=== PATIENT | female | born 1990 | race American Indian/Alaskan Native ===

== ENCOUNTER 2016-03-26 07:49 | Emergency (ER) | payer SELFPAY ==
[2016-03-26 08:28] VITALS: BP 105/72
[2016-03-26] MEDS ORDERED: ROBITUSSIN PO ONE (09:08)
--- NOTE | 2016-03-26 09:14 | Emergency Department Report ---
- General Chief Complaint: Upper Respiratory Infection Stated Complaint: FLU SYMPTOMS/STOMACH PAINS Time Seen by Provider: 03/26/16 08:54 Source: patient Mode of arrival: Ambulatory Limitations: No Limitations - History of Present Illness Initial Comments: Patient is a 25-year-old female who presents to ED complaining of cough, generalized body aches 3 days. Patient states generalized body aches started 3 days ago followed by dry nonproductive cough, generalized denies headache started yesterday. Patient states she has not taking any [id number] medications for relief. Patient does not recall fever. Patient states she has had some chills, clear rhinorrhea,. Patient denies nausea/vomiting/abdominal pain/diarrhea/constipation/chest pain/ shortness of breath/recent travel/throat pain/dysuria - Related Data Previous Rx's Medication Instructions Recorded Last Taken Type Benzonatate [Tessalon Perles] 100 mg PO Q8HR #30 capsule 03/26/16 Unknown Rx Loratadine [Claritin] 10 mg PO DAILY #20 tablet 03/26/16 Unknown Rx guaiFENesin DM [Robitussin Dm] 10 ml PO Q6HR #120 ml 03/26/16 Unknown Rx Allergies Allergy/AdvReac Type Severity Reaction Status Date / Time No Known Allergies Allergy Verified 11/18/14 14:06 ED Review of Systems ROS: Stated complaint: FLU SYMPTOMS/STOMACH PAINS Other details as noted in HPI Constitutional: chills. denies: fever Eyes: denies: eye pain, eye discharge, vision change ENT: denies: ear pain, throat pain, dental pain, hearing loss Respiratory: see HPI, cough. denies: shortness of breath, SOB with exertion, SOB at rest, wheezing Cardiovascular: denies: chest pain, palpitations Endocrine: no symptoms reported. denies: flushing, increased hunger, increased thirst, increased urine Gastrointestinal: denies: abdominal pain, nausea, vomiting, diarrhea, constipation, hematemesis Genitourinary: denies: urgency, dysuria, discharge Musculoskeletal: denies: back pain, joint swelling, arthralgia Skin: denies: rash, lesions Neurological: denies: headache, weakness, paresthesias, confusion, abnormal gait , vertigo Psychiatric: denies: anxiety, depression Hematological/Lymphatic: denies: easy bleeding, easy bruising ED Past Medical Hx - Past Medical History Previous Medical History?: No - Surgical History Past Surgical History?: No Additional Surgical History: - Social History Smoking Status: Never Smoker Substance Use Type: None - Medications Home Medications: Home Medications Medication Instructions Recorded Confirmed Last Taken Type Benzonatate [Tessalon Perles] 100 mg PO Q8HR #30 capsule 03/26/16 Unknown Rx Loratadine [Claritin] 10 mg PO DAILY #20 tablet 03/26/16 Unknown Rx guaiFENesin DM [Robitussin Dm] 10 ml PO Q6HR #120 ml 03/26/16 Unknown Rx ED Physical Exam - General Limitations: No Limitations General appearance: alert, in no apparent distress - Head Head exam: Present: atraumatic, normocephalic - Eye Eye exam: Present: normal appearance, PERRL, EOMI Pupils: Present: normal accommodation - ENT ENT exam: Present: mucous membranes moist - Expanded ENT Exam Expanded Ear exam: Present: normal external inspection. Absent: auricular hematoma, auricular trauma Mouth exam: Present: normal external inspection, tongue normal. Absent: drooling, trismus, muffled voice Teeth exam: Present: normal inspection Throat exam: Positive: normal inspection. Negative: tonsillar erythema, tonsillomegaly, tonsillar exudate, R peritonsillar mass, L peritonsillar mass - Neck Neck exam: Present: normal inspection, full ROM. Absent: tenderness - Respiratory Respiratory exam: Present: normal lung sounds bilaterally. Absent: respiratory distress, wheezes, rales, rhonchi, stridor - Cardiovascular Cardiovascular Exam: Present: regular rate, normal rhythm. Absent: systolic murmur, diastolic murmur, rubs, gallop - GI/Abdominal GI/Abdominal exam: Present: soft, normal bowel sounds. Absent: distended, tenderness, guarding, rebound - Extremities Exam Extremities exam: Present: normal inspection, full ROM, normal capillary refill. Absent: tenderness - Back Exam Back exam: Present: normal inspection, full ROM. Absent: tenderness, CVA tenderness (R), CVA tenderness (L) - Neurological Exam Neurological exam: Present: alert, oriented X3, normal gait, reflexes normal. Absent: motor sensory deficit - Psychiatric Psychiatric exam: Present: normal affect, normal mood - Skin Skin exam: Present: warm, dry, intact, normal color. Absent: rash ED Course Vital Signs 03/26/16 08:25 Temperature 99 F Pulse Rate 92 H Blood Pressure 105/72 O2 Sat by Pulse 96 Oximetry ED Medical Decision Making - Medical Decision Making 25-year-old presents with upper respiratory infection, ED course: Influenza nasal swab collected. Influenza A and B negative Robitussin syrup to patient. Discussed results with patient. Discussed the follow up with primary care physician as referred. Discussed [id number] medications for symptomatic relief. Discussed Tylenol as needed Discussed to take prescriptions as prescribed. Patient states she verbally understands and will comply. Critical care attestation.: If time is entered above; I have spent that time in minutes in the direct care of this critically ill patient, excluding procedure time. ED Disposition Clinical Impression: URI (upper respiratory infection) Disposition: DISCHARGED TO HOME OR SELFCARE Is pt being admited?: No Does the pt Need Aspirin: No Condition: Stable Instructions: Upper Respiratory Infection (ED), Acute Bronchitis (ED) Prescriptions: Loratadine [Claritin] 10 mg PO DAILY #20 tablet guaiFENesin DM [Robitussin Dm] 10 ml PO Q6HR #120 ml Benzonatate [Tessalon Perles] 100 mg PO Q8HR #30 capsule Referrals: PRIMARY CARE, [Primary Care Provider] - 3-5 Days [facility] [place][Note 3] [Outside] - 3-5 Days [facility] [Outside] - 3-5 Days [facility] [Outside] - 3-5 Days [facility] [Outside] - 3-5 Days [facility] [Outside] - 3-5 Days Forms: Accompanied Note, Work/School Release Form(ED) Time of Disposition: 10:08
== END 2016-03-26 10:33 | disposition home or self-care (01) ==
LOC: ED 07:49
DX: J06.9 Acute upper respiratory infection, unspecified (principal)
CPT/HCPCS: 87400; 99282

== ENCOUNTER 2016-07-09 10:18 | Emergency (ER) | payer SELFPAY ==
[2016-07-09 11:08] LABS: Basophils % (Auto) 0.8 % (0.0-1.8); Eosinophils % (Auto) 0.5 % (0.0-4.3); Hematocrit 35.3 % (30.3-42.9); Hemoglobin 11.7 gm/dl (10.1-14.3); Mean Corpuscular HGB Conc 33 % (30-34); Mean Corpuscular Hemoglobin 30 pg (28-32); Mean Corpuscular Volume 89 fl (79-97); Platelet Count 336 K/mm3 (140-440); Red Blood Count 3.95 M/mm3 (3.65-5.03); Red Cell Distribution Width 12.6 % (13.2-15.2); White Blood Count 8.8 K/mm3 (4.5-11.0)
[2016-07-09 11:22] LABS: Alanine Aminotransferase 11 units/L (7-56); Albumin 3.9 g/dL (3.9-5); Albumin/Globulin Ratio 1.3 %; Alkaline Phosphatase 43 units/L (35-129); Anion Gap 15 mmol/L; BUN/Creatinine Ratio 11.66; Bilirubin,Total 0.4 mg/dL (0.1-1.2); Blood Urea Nitrogen 7 mg/dL (7-17); Calcium 9.1 mg/dL (8.4-10.2); Carbon Dioxide 22 mmol/L (22-30); Chloride 102.4 mmol/L (98-107); Glucose 55 mg/dL (65-100); Lipase 34 units/L (13-60); Potassium 3.4 mmol/L (3.6-5.0); Sodium 136 mmol/L (137-145)
[2016-07-09 12:20] LABS: Bacteria,Urine 2+ /HPF (Negative); Bilirubin,Urine NEG (Negative); Blood,Urine SM (Negative); Ketones,Urine NEG (Negative); Leukocyte Esterase,Urine TR (Negative); Mucus,Urine FEW /HPF; Nitrite,Urine NEG (Negative); Protein,Urine <15 mg/dL mg/dL (Negative); Urobilinogen,Urine < 2.0 mg/dL (<2.0)
--- NOTE | 2016-07-09 20:27 | Ultrasound Report ---
FINAL REPORT EXAM: US OB \T\lt; = 14 WEEKS FETUS HISTORY: vaginal bleeding TECHNIQUE: Transabdominal and transvaginal sonography of the pelvis. PRIORS: None. FINDINGS: There is a single, live intrauterine . Ultrasound estimated gestational age is 6 weeks 6 days. Ultrasound estimated date of confinement is 26 February 2017. heart motion is detected. The right ovary measures 3.2 x 2.9 x 2.6 cm and contains a rounded, hypoechoic focus measuring approximately 2 cm, which may represent involuting follicle or cyst. The left ovary measures 2.7 x 1.4 x 1.9 cm and is grossly unremarkable. Remainder of uterus and adnexa grossly unremarkable. IMPRESSION: 1. Single, live intrauterine . 2. Findings which may represent functional cystic change in the right ovary. Clinical correlation and followup pelvic ultrasound in 6-10 weeks advised to document resolution.
[2016-07-09 21:36] VITALS: BP 98/65
== END 2016-07-09 21:38 ==
LOC: ED 10:18
DX: R10.9 Unspecified abdominal pain (principal); Z53.21 Procedure and treatment not carried out due to patient leaving prior to being seen by health care provider; V49.9XXA Car occupant (driver) (passenger) injured in unspecified traffic accident, initial encounter; W22.11XA Striking against or struck by driver side automobile airbag, initial encounter; Y93.89 Activity, other specified; Y99.8 Other external cause status; Y92.89 Other specified places as the place of occurrence of the external cause
CPT/HCPCS: 36415; 76801; 76817; 80053; 81001; 81025; 83690; 84702; 85025

== ENCOUNTER 2016-10-05 21:28 | Emergency (ER) | payer MEDICAID ==
--- NOTE | 2016-10-06 01:06 | Emergency Department Report ---
ED ENT HPI - General Chief complaint: Earache Stated complaint: R EAR PAIN/POSS EAR INFECTION Time Seen by Provider: 10/05/16 23:49 Source: patient Mode of arrival: Ambulatory Limitations: No Limitations - History of Present Illness Initial comments: 26-year-old female past medical history presents with complaint of 2-3 days of right earache. Patient denies fevers or chills denies any toothache, states she has had some minor purulent drainage from right ear. Denies headache states pain is localized to right ear. Patient is awake alert and oriented 3 not in acute distress. States she has been cleaning her ear with Q-tips and cotton swabs. MD complaint: ear pain Onset/Timin -: days(s) Location: R ear Severity: moderate Severity scale (0 -10): 5 Quality: aching Consistency: constant Improves with: none Worsens with: none - Related Data Previous Rx's Medication Instructions Recorded Last Taken Type Benzonatate [Tessalon Perles] 100 mg PO Q8HR #30 capsule 03/26/16 Unknown Rx Loratadine [Claritin] 10 mg PO DAILY #20 tablet 03/26/16 Unknown Rx guaiFENesin DM [Robitussin Dm] 10 ml PO Q6HR #120 ml 03/26/16 Unknown Rx Amoxicillin/K Clav Tab [Augmentin 1 tab PO Q12HR #14 tab 10/06/16 Unknown Rx 875 mg] Ibuprofen [Motrin] 600 mg PO Q8H PRN #20 tablet 10/06/16 Unknown Rx Neomy/Polymyx B/Hc (Otic) Soln 4 drops OTIC TID #1 bottle 10/06/16 Unknown Rx [Cortisporin (Otic) Soln] Allergies Allergy/AdvReac Type Severity Reaction Status Date / Time No Known Allergies Allergy Verified 11/18/14 14:06 ED Dental HPI - General Chief complaint: Earache Stated complaint: R EAR PAIN/POSS EAR INFECTION Time Seen by Provider: 10/05/16 23:49 Source: patient Mode of arrival: Ambulatory Limitations: No Limitations - Related Data Previous Rx's Medication Instructions Recorded Last Taken Type Benzonatate [Tessalon Perles] 100 mg PO Q8HR #30 capsule 03/26/16 Unknown Rx Loratadine [Claritin] 10 mg PO DAILY #20 tablet 03/26/16 Unknown Rx guaiFENesin DM [Robitussin Dm] 10 ml PO Q6HR #120 ml 03/26/16 Unknown Rx Amoxicillin/K Clav Tab [Augmentin 1 tab PO Q12HR #14 tab 10/06/16 Unknown Rx 875 mg] Ibuprofen [Motrin] 600 mg PO Q8H PRN #20 tablet 10/06/16 Unknown Rx Neomy/Polymyx B/Hc (Otic) Soln 4 drops OTIC TID #1 bottle 10/06/16 Unknown Rx [Cortisporin (Otic) Soln] Allergies Allergy/AdvReac Type Severity Reaction Status Date / Time No Known Allergies Allergy Verified 11/18/14 14:06 ED Review of Systems ROS: Stated complaint: R EAR PAIN/POSS EAR INFECTION Other details as noted in HPI Constitutional: denies: chills, fever Eyes: denies: eye pain, eye discharge, vision change ENT: as per HPI, ear pain. denies: throat pain Respiratory: denies: cough, shortness of breath, wheezing Cardiovascular: denies: chest pain, palpitations Endocrine: no symptoms reported Gastrointestinal: denies: abdominal pain, nausea, diarrhea Genitourinary: denies: urgency, dysuria, discharge Musculoskeletal: denies: back pain, joint swelling, arthralgia Skin: denies: rash, lesions Neurological: denies: headache, weakness, paresthesias Psychiatric: denies: anxiety, depression Hematological/Lymphatic: denies: easy bleeding, easy bruising ED Past Medical Hx - Past Medical History Previous Medical History?: No - Surgical History Past Surgical History?: Yes Additional Surgical History: x2 - Social History Smoking Status: Never Smoker Substance Use Type: None - Medications Home Medications: Home Medications Medication Instructions Recorded Confirmed Last Taken Type Benzonatate [Tessalon Perles] 100 mg PO Q8HR #30 capsule 03/26/16 07/09/16 Unknown Rx Loratadine [Claritin] 10 mg PO DAILY #20 tablet 03/26/16 07/09/16 Unknown Rx guaiFENesin DM [Robitussin Dm] 10 ml PO Q6HR #120 ml 03/26/16 07/09/16 Unknown Rx Amoxicillin/K Clav Tab [Augmentin 1 tab PO Q12HR #14 tab 10/06/16 Unknown Rx 875 mg] Ibuprofen [Motrin] 600 mg PO Q8H PRN #20 tablet 10/06/16 Unknown Rx Neomy/Polymyx B/Hc (Otic) Soln 4 drops OTIC TID #1 bottle 10/06/16 Unknown Rx [Cortisporin (Otic) Soln] ED Physical Exam - General Limitations: No Limitations General appearance: alert, in no apparent distress - Head Head exam: Present: atraumatic, normocephalic - Eye Eye exam: Present: normal appearance, PERRL, EOMI - ENT ENT exam: Present: mucous membranes moist - Expanded ENT Exam Expanded TM/Canal exam: Erythema: Right TM, Bulging: Right TM, Effusion: Right TM ( visible effusion small effusion behind tympanic membrane, tympanic membrane is intact. There is no mastoid tenderness on exam, injection of tympanic membrane and external canal) Throat exam: Positive: normal inspection - Neck Neck exam: Present: normal inspection, full ROM, lymphadenopathy (mild preauricular lymphadenopathy right side face) - Respiratory Respiratory exam: Present: normal lung sounds bilaterally. Absent: respiratory distress - Cardiovascular Cardiovascular Exam: Present: regular rate, normal rhythm. Absent: systolic murmur, diastolic murmur, rubs, gallop - GI/Abdominal GI/Abdominal exam: Present: soft, normal bowel sounds - Extremities Exam Extremities exam: Present: normal inspection - Back Exam Back exam: Present: normal inspection - Neurological Exam Neurological exam: Present: alert, oriented X3 - Psychiatric Psychiatric exam: Present: normal affect, normal mood - Skin Skin exam: Present: warm, dry, intact, normal color. Absent: rash ED Course Vital Signs 10/05/16 21:58 Temperature 98.7 F Pulse Rate 69 Blood Pressure 98/48 O2 Sat by Pulse 100 Oximetry ED Medical Decision Making - Medical Decision Making A/P: Otitis externa/otitis media 1-there is both injection of the external auditory canal and the tympanic membrane itself will treat empirically with oral antibiotics and topical antibiotics 2-Motrin when necessary 3-there is no evidence of mastoiditis on exam, tympanic membrane is not ruptured , overall hearing is intact 4-follow up with primary care and ENT Critical care attestation.: If time is entered above; I have spent that time in minutes in the direct care of this critically ill patient, excluding procedure time. ED Disposition Clinical Impression: Otitis media Qualifiers: Otitis media type: suppurative Chronicity: acute Laterality: right Recurrence: not specified as recurrent Spontaneous tympanic membrane rupture: without spontaneous rupture Qualified Code(s): H66.001 - Acute suppurative otitis media without spontaneous rupture of ear drum, right ear Disposition: TO HOME OR SELFCARE Is pt being admited?: No Does the pt Need Aspirin: No Condition: Stable Instructions: Otitis Media (ED) Prescriptions: Amoxicillin/K Clav Tab [Augmentin 875 mg] 1 tab PO Q12HR #14 tab Ibuprofen [Motrin] 600 mg PO Q8H PRN #20 tablet PRN Reason: Pain Neomy/Polymyx B/Hc (Otic) Soln [Cortisporin (Otic) Soln] 4 drops OTIC TID #1 bottle Referrals: JANUSZ ORTIZ MD [Staff Physician] - 3-5 Days ROHIT MALLORY MD [Staff Physician] - 3-5 Days Forms: Work/School Release Form(ED) Time of Disposition: 01:20
[2016-10-06] MEDS ORDERED: MOTRIN PO ONE (01:21)
[2016-10-06 01:31] VITALS: BP 97/59
== END 2016-10-06 01:31 | disposition home or self-care (01) ==
LOC: ED 21:28
DX: H66.91 Otitis media, unspecified, right ear (principal)
CPT/HCPCS: 99282

== ENCOUNTER 2016-10-28 09:05 | Outpatient (CLI) | payer MEDICAID ==
[2016-10-28 09:40] VITALS: BP 87/52
[2016-10-28] MEDS ORDERED: LACTATED RINGERS 500 ML IV ONE (11:27)
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
== END 2016-10-28 11:45 | disposition home or self-care (01) ==
LOC: TRG 09:05
PROVIDERS: ATTEND Obstetrics & Gynecology
DX: O46.92 Antepartum hemorrhage, unspecified, second trimester (principal); O47.02 False labor before 37 completed weeks of gestation, second trimester; O26.892 Other specified pregnancy related conditions, second trimester; V89.2XXD Person injured in unspecified motor-vehicle accident, traffic, subsequent encounter; Z3A.22 22 weeks gestation of pregnancy
CPT/HCPCS: 59025; 76815

== ENCOUNTER 2016-10-28 16:50 | Outpatient (CLI) | payer MEDICAID ==
[2016-10-28] MEDS ORDERED: LACTATED RINGERS 500 ML IV ONE (16:53)
[2016-10-28 19:49] VITALS: BP 95/53
== END 2016-10-28 20:01 | disposition home or self-care (01) ==
LOC: TRG 16:50
PROVIDERS: ATTEND Obstetrics & Gynecology
DX: O47.02 False labor before 37 completed weeks of gestation, second trimester (principal); Z3A.22 22 weeks gestation of pregnancy
CPT/HCPCS: 59025

== ENCOUNTER 2016-12-31 07:54 | Outpatient (CLI) | payer MEDICAID ==
[2016-12-31 08:14] LABS: Urine Drugs of Abuse Note Disclamer
[2016-12-31 08:27] LABS: Bilirubin,Urine NEG (Negative); Blood,Urine NEG (Negative); Ketones,Urine NEG (Negative); Leukocyte Esterase,Urine NEG (Negative); Mucus,Urine FEW /HPF; Nitrite,Urine NEG (Negative); Protein,Urine <15 mg/dL mg/dL (Negative); RBC,Urine < 1.0 /HPF (0.0-6.0); Urobilinogen,Urine < 2.0 mg/dL (<2.0); WBC,Urine < 1.0 /HPF (0.0-6.0)
[2016-12-31 08:56] LABS: Hemoglobin 10.8 gm/dl (10.1-14.3); Mean Corpuscular HGB Conc 34 % (30-34); Mean Corpuscular Hemoglobin 30 pg (28-32); Mean Corpuscular Volume 88 fl (79-97); Platelet Count 340 K/mm3 (140-440); Red Blood Count 3.66 M/mm3 (3.65-5.03); Red Cell Distribution Width 12.7 % (13.2-15.2); White Blood Count 9.4 K/mm3 (4.5-11.0)
[2016-12-31 09:13] VITALS: BP 84/54
[2016-12-31 09:37] LABS: Blastocytes % (Manual) 0 %
[2016-12-31 09:38] LABS: Anisocytosis Few; Diff Status Complete; Poikilocytosis Few
[2016-12-31] MEDS ORDERED: LACTATED RINGERS 1,000 ML IV ONE (10:00)
== END 2016-12-31 09:40 | disposition home or self-care (01) ==
LOC: TRG 07:54
PROVIDERS: ATTEND Obstetrics & Gynecology
DX: O47.03 False labor before 37 completed weeks of gestation, third trimester (principal); Z3A.31 31 weeks gestation of pregnancy
CPT/HCPCS: 36415; 59025; 80307; 81001; 85007; 85025; 96360; J7120

== ENCOUNTER 2017-02-24 09:30 | Inpatient (IN) | payer MEDICAID ==
[2017-02-24] MEDS ORDERED: LACTATED RINGERS 1,000 ML ONE ×2 (10:07→10:49)
[2017-02-24] MEDS: LACTATED RINGERS 1,000 ML IV SCH ×2 (10:45→15:46)
--- NOTE | 2017-02-24 10:54 | Anesthesia Consultation ---
Anesthesia Consult and Med Hx Date of service: 02/24/17 - Airway Anesthetic Teeth Evaluation: Good ROM Head & Neck: Adequate Mental/Hyoid Distance: Adequate Mallampati Class: Class II Intubation Access Assessment: Probably Good - Pre-Operative Health Status ASA Pre-Surgery Classification: ASA2 Proposed Anesthetic Plan: Epidural, Spinal - Pulmonary Hx Asthma: No - Cardiovascular System Hx Hypertension: No - Central Nervous System Hx Seizures: No Hx Psychiatric Problems: No - Endocrine Hx Renal Disease: No Hx Hypothyroidism: No Hx Hyperthyroidism: No - Hematic Hx Anemia: No Hx Sickle Cell Disease: No - Other Systems Hx Alcohol Use: No
--- NOTE | 2017-02-24 10:58 | Anesthesia Day of Surgery ---
Anesthesia Day of Surgery - Day of Surgery Patient Examined: Yes Patient H&P Reviewed: Yes Patient is NPO: Yes
[2017-02-24] MEDS ORDERED: REGLAN IV NR (11:00)
[2017-02-24] MEDS ORDERED: PITOCin/NS 20 UNIT/1000ML DRIP 20 UNITS/1,000 ML BAG IV SCH ×2 (11:00→13:00)
[2017-02-24] MEDS ORDERED: SODIUM CHLORIDE FLUSH SYRINGE 10 ML IV NR (11:00)
[2017-02-24] MEDS ORDERED: BICITRA PO NR (11:00)
[2017-02-24] MEDS ORDERED: ANCEF/STERILE WATER 2 GM/20 ML 2 GM/20 ML SYRINGE IV NR (11:00)
[2017-02-24] MEDS ORDERED: PEPCID IV NR (11:00)
[2017-02-24] MEDS ORDERED: BENADRYL IV PRN (11:00)
[2017-02-24 11:03] LABS: Hematocrit 33.7 % (30.3-42.9); Hemoglobin 11.1 gm/dl (10.1-14.3); Mean Corpuscular HGB Conc 33 % (30-34); Mean Corpuscular Hemoglobin 28 pg (28-32); Mean Corpuscular Volume 84 fl (79-97); Platelet Count 362 K/mm3 (140-440); Red Blood Count 4.02 M/mm3 (3.65-5.03); White Blood Count 11.5 K/mm3 (4.5-11.0)
--- NOTE | 2017-02-24 11:03 | History and Physical Report ---
History of Present Illness Date of examination: 02/24/17 Date of admission: 02/24/17 09:35 Chief complaint: c/s History of present illness: Pt here for repeat c/s. EDC Calculations LMP: 03/02/2017 EDC Confirmation: 03/02/2017 Gestational Age: 14 1/7 weeks Past History : 3 Term Births: 2 Premature Births: 0 Living Children: 2 Para: 2 Mult. Births: 0 Prev : 2 Prev. attempt? 0 Aborta: 0 Elect. Ab: 0 Spont. Ab: 0 Ectopics: 0 # 1 Delivery date: 2006 Weeks Gestation: term labor: no Delivery type: Delivery location: [facility] Sex: Male weight: 5#2 Comments: failure to diliate # 2 Delivery date: 2009 Weeks Gestation: term labor: no Delivery type: Delivery location: [facility] Sex: Female weight: 7#1 Comments: scheduled repeat Past Medical History: Negative Past Medical History Past Surgical History: x2 Past Medical History Surgery (Non-solution director): x2 Abnormal PAP: negative PATY Exposure: negative Infertility: negative Uterine Anomaly: negative Uterine Surgery (not C/S): negative Other Gynecologic Problems: negative Family Hx: MGM - HTN MGF - Lung CA No knonw family hx breast cancer Social Hx: single denies ETOH/Drugs or smoking Infection History Hx of STD: chlamydia HIV Risk Eval: no Hepatitis B Risk Eval: low risk Personal hx. of genital herpes: no Partner hx. of genital herpes: no Rash, Viral, or Febrile illness since last LMP? no Varicella/Chicken Pox Status: Previous Disease Infection History Comments: +CT age 16 Genetic History Congenital Heart Defect: Mom: no Dad: no Yara Disease: Mom: no Dad: no Thalassemia Mom: no Dad: no Neural Tube Defect Mom: no Dad: no Down's Syndrome Mom: no Dad: no Jonathon-Sachs Mom: no Dad: no Sickle Cell Disease/Trait Mom: no Dad: no Hemophilia Mom: no Dad: no Muscular Dystrophy Mom: no Dad: no Cystic Fibrosis Mom: no Dad: no Karen Chorea Mom: no Dad: no Mental Retardation Mom: no Dad: no Fragile X Mom: no Dad: no Other Genetic/Chromosomal Disorder Mom: no Dad: no Child w/other defect Mom: no Dad: no Enviromental Exposures Xray Exposure: no Medication, drug, or alcohol use since LMP: no Chemical/Other Exposure: no Exposure to Cat Liter: no Hx of Parvovirus (Fifth Disease): no Occupational Exposure to Children: none Active Medications (reviewed today): None Current Allergies (reviewed today): No known allergies Past History Past Medical History: no pertinent history Past Surgical History: section Family/Genetic History: none Social history: no significant social history - Obstetrical History Expected Date of Delivery: 03/02/17 Actual Gestation: 39 Week(s) 1 Day(s) : 3 Para: 2 Number of Living Children: 2 Medications and Allergies Allergies Allergy/AdvReac Type Severity Reaction Status Date / Time No Known Allergies Allergy Verified 11/18/14 14:06 Home Medications Medication Instructions Recorded Confirmed Last Taken Type Benzonatate [Tessalon Perles] 100 mg PO Q8HR #30 capsule 03/26/16 07/09/16 Unknown Rx Loratadine [Claritin] 10 mg PO DAILY #20 tablet 03/26/16 07/09/16 Unknown Rx guaiFENesin DM [Robitussin Dm] 10 ml PO Q6HR #120 ml 03/26/16 07/09/16 Unknown Rx Amoxicillin/K Clav Tab [Augmentin 1 tab PO Q12HR #14 tab 10/06/16 Unknown Rx 875 mg] Ibuprofen [Motrin] 600 mg PO Q8H PRN #20 tablet 10/06/16 Unknown Rx Neomy/Polymyx B/Hc (Otic) Soln 4 drops OTIC TID #1 bottle 10/06/16 Unknown Rx [Cortisporin (Otic) Soln] Active Meds: Active Medications Citric Acid/Sodium Citrate (Bicitra) 30 ml PO ONCE ONE Stop: 02/24/17 10:47 Famotidine (Pepcid) 20 mg IV ONCE ONE Stop: 02/24/17 10:47 Cefazolin Sodium (Ancef/Sterile Water 2 Gm/20 Ml) 2 gm in 20 mls @ 80 mls/hr IV PREOP NR PRN Reason: Protocol Lactated Ringer's (Lactated Ringers) 1,000 mls @ 2,250 mls/hr IV PREOP ASYA Stop: 02/25/17 11:27 Oxytocin/Sodium Chloride (Pitocin/Ns 20 Unit/1000ml Drip) 20 units in 1,000 mls @ 0 mls/hr IV TITR ASYA PRN Reason: As Directed Metoclopramide HCl (Reglan) 10 mg IV ONCE ONE Stop: 02/24/17 10:47 Review of Systems All systems: negative - Vital Signs Vital signs: Vital Signs Temp Resp 98.0 F 18 02/24/17 10:12 02/24/17 10:12 Temp Pulse Resp BP Pulse Ox 98.0 F 65 18 108/61 02/24/17 10:12 02/24/17 10:41 02/24/17 10:12 02/24/17 10:41 - Physical Exam Cardiovascular: Normal S1, Normal S2 Lungs: Positive: Clear to auscultation Abdomen: Positive: normal appearance, soft. Negative: distention, tenderness, guarding Genitourinary (Female): Positive: normal external genitalia, normal perenium Results Result Diagrams: 02/24/17 10:00 All other labs normal. Assessment and Plan - Patient Problems (1) Previous delivery affecting Current Visit: Yes Status: Acute Plan to address problem: -admit for repeat for c/s -consents signed and placed on the chart.
[2017-02-24] MEDS ORDERED: TORADOL IV PRN (11:30)
[2017-02-24] MEDS ORDERED: PHENERGAN PR PRN (11:30)
[2017-02-24] MEDS ORDERED: NARCAN 0.4 MG/1 ML IV PRN ×2 (11:30→12:55)
[2017-02-24] MEDS ORDERED: MORPHINE IV PRN (11:30)
[2017-02-24] MEDS ORDERED: ZOFRAN IV PRN (11:30)
[2017-02-24] MEDS ORDERED: MORPHINE ONE (11:40)
[2017-02-24 11:55] LABS: Basophils % (Manual) 0 % (0.0-1.8); Blastocytes % (Manual) 0 %; Eosinophils % (Manual) 0 % (0.0-4.3)
[2017-02-24 11:56] LABS: Anisocytosis Few; Diff Status Complete; Polychromasia Few; Total Cells Counted Percent 12
[2017-02-24] MEDS ORDERED: DILAUDID ONE (12:29)
[2017-02-24] MEDS ORDERED: NEO SYNEPHRINE/NS Syringe(OR USE) IV ONE (12:30)
[2017-02-24] MEDS ORDERED: NACL 0.9% 1000 ML 1,000 ML ONE (12:35)
[2017-02-24] MEDS ORDERED: TUCKS PAD TP PRN (12:55)
[2017-02-24] MEDS ORDERED: LANSINOH TP PRN (12:55)
[2017-02-24] MEDS ORDERED: ANCEF/NS 1 GM/50 ML 1 GM/50 ML BAG IV SCH (13:00)
[2017-02-24] MEDS ORDERED: D5LR 1,000 ML IV SCH (13:00)
--- NOTE | 2017-02-24 13:21 | Operative Report ---
Operative Report Operative Report: Date of procedure: 02/24/2017 Pre-operative diagnosis: Previous section 2 39 weeks gestation Post-operative diagnosis: Same Procedure name(s): Repeat low transverse section via Pfannenstiel skin incision Surgeon: Dr. Carpentre Plodder Operator: SHADE Anesthesia: Spinal EBL: 600 mL Urine output: 200 mL of clear urine out at the end of the procedure Fluids: 1300 mL Findings: Liveborn female weight 6 lbs. 6 oz. Apgars of 8 and 9 at one and 5 minutes Adhesions of the uterus to the anterior abdominal wall Grossly normal fallopian tubes and ovaries bilaterally Well-developed lower uterine segment Indications: Patient presents for repeat section. All risks benefits and alternatives were discussed with the patient. Consents were signed and placed on the chart. Procedure: Patient was taking to the operating room. Patient was then prepped and draped in sterile fashion after anesthesia was found to be adequate. A low transverse skin incision was made with the scalpel through previous incisional scar and carried down to the underlying layer of fascia with the Bovie. The fascia was then incised in the midline and this incision was extended bilaterally with the Bovie. The superior aspect of the fascia was grasped with Omises clamps tented upward and dissected off of the anterior rectus muscles with the scalpel. In similar fashion the inferior aspect of the fascia was grasped with Moises clamps tented upward and dissected off of the anterior rectus muscles. The rectus muscles were then bluntly divided in the midline. The peritoneum was identified and entered into sharply. The Ko retractor was placed The bladder blade was placed. The bladder flap was not created due to adhesions of the bladder to the lower uterine segmenta lower transverse uterine incision was made with the scalpel and extended bilaterally with blunt dissection. Artificial rupture of membranes was performed yielding clear amniotic fluid. The infant's head was then delivered atraumatically. The anterior shoulder and rest of infant delivered without difficulty. The umbilical cord was clamped x2. The cord was cut. The infant was then placed in sterile bassinet. The cord blood was collected. The placenta was manually extracted in its entirety. The uterus was exteriorized and cleared of all clots and debris. The uterine incision was closed using 0 Vicryl in a running locking fashion. A second imbricating layer of the same suture was then created. The posterior cul-de-sac was copiously irrigated. The uterus was returned to the abdomen. The gutters were also irrigated. The anterior rectus muscles were reapproximated using 3-0 Vicryl. The Ko retractor was removed from the abdomen. The anterior rectus fascia was reapproximated using 0 Vicryl in a running fashion. The subcuticular fat was reapproximated using 2-0 Vicryl in a running fashion. The skin was reapproximated with 4-0 Monocryl in a subcuticular stitch. The patient tolerated the procedure well. Sponge lap and needle counts were all correct x3. Patient was taken to the recovery room awake and in stable condition.
[2017-02-24] MEDS ORDERED: ceFAZolin 1 GM in NACL 0.9% 20 ML IV SCH (18:00)
--- NOTE | 2017-02-24 20:21 | Post Anesthesia Evaluation ---
- Post Anesthesia Evaluation Patient Participated: Yes Airway Patent: Yes Stable Respiratory Function: Yes Nausea/Vomiting: No Temp > 96.8F: Yes Pain Manageable: Yes Adequeate Hydration: Yes Anesthesia Complications: No Block Receding Appropriately: Yes Patient on Ventilator: No
[2017-02-25 01:04] LABS: Hematocrit 29.2 % (30.3-42.9); Hemoglobin 9.5 gm/dl (10.1-14.3)
--- NOTE | 2017-02-25 07:28 | Progress Note ---
Assessment and Plan - Patient Problems (1) delivery delivered Onset Date: ~02/24/17 Current Visit: Yes Status: Acute Plan to address problem: Pt A&O X 3 Voicing no c/o VSS FF below umb Lochia small Dressing D&I to be removed this AM H&H 12/18 drop r/t blood loss from surgery No s/sx of anemia Doing well s/p section P: continue pathway Advance diet and activity as tolerated. Subjective - Subjective Date of service: 02/25/17 (pt w/o complaint) Principal diagnosis: Day # 1 s/p section Patient reports: appetite normal, voiding normally, pain well controlled, ambulating normally : doing well Objective - Vital Signs Latest vital signs: Vital Signs Temp Pulse Resp BP BP Pulse Ox 02/25/17 04:20 98.2 F 63 18 112/61 02/25/17 00:00 98.9 F 74 20 101/64 02/24/17 20:00 98.0 F 62 20 93/53 02/24/17 17:15 97.8 F 70 20 102/68 100 02/24/17 15:08 20 02/24/17 14:30 97.5 F L 72 20 101/60 02/24/17 13:00 97.6 F 58 L 14 99/60 99 02/24/17 10:41 65 108/61 02/24/17 10:12 98.0 F 18 Intake and Output 02/24/17 02/25/17 02/25/17 22:59 06:59 14:59 Intake Total 120 360 Output Total 100 200 Balance 20 160 Intake: Oral 120 360 Output: Urine 100 200 Indwelling Catheter 100 200 Other: Total, Intake Amount 120 120 Total, Output Amount 100 200 - Exam Breasts: Present: normal Cardiovascular: Present: Regular rate Lungs: Present: Normal air movement Abdomen: Present: normal appearance, soft Extremities: Present: normal Deep Tendon Reflex Grade: Normal +2 Incision: Present: normal, dry, intact - Labs Labs: Abnormal lab results 02/24/17 02/25/17 Range/Units 10:00 00:27 WBC 11.5 H (4.5-11.0) K/mm3 Hgb 9.5 L (10.1-14.3) gm/dl Hct 29.2 L (30.3-42.9) % Monocytes % (Manual) 12 H (0.0-7.3) % Monocytes # (Manual) 1.3 H (0.0-0.8) K/mm3
[2017-02-25] MEDS: MOTRIN PO PRN ×2 (10:14→18:10)
[2017-02-25] MEDS: NORCO 5/325 PO PRN ×3 (10:14→21:57)
[2017-02-25] MEDS ORDERED: BOOSTRIX IM ONE (12:56)
[2017-02-26] MEDS: NORCO 5/325 PO PRN (05:18)
--- NOTE | 2017-02-26 08:28 | Progress Note ---
Assessment and Plan Patient doing well, requests d/c home today. Lochia scant, VSSAF, H&H stable. plan for d/c home w/ routine 1 week f/u in office. - Patient Problems (1) delivery delivered Onset Date: ~02/24/17 Current Visit: Yes Status: Acute Subjective - Subjective Date of service: 02/26/17 Principal diagnosis: Day # 2 s/p section Patient reports: appetite normal, voiding normally, pain well controlled, flatus , ambulating normally, no dizzy ambulation, no nauseated : doing well, bottle feeding Objective - Vital Signs Latest vital signs: Vital Signs Temp Pulse Resp BP 02/26/17 05:18 18 02/26/17 00:00 98.2 F 68 101/52 02/25/17 18:11 20 02/25/17 18:10 20 02/25/17 16:50 98.0 F 70 18 97/45 02/25/17 12:40 98.7 F 60 18 102/60 02/25/17 10:14 20 02/25/17 09:20 98.6 F 60 18 90/47 Intake and Output 02/25/17 02/26/17 02/26/17 23:59 07:59 15:59 Intake Total 240 120 Balance 240 120 Intake: Oral 240 120 Other: Total, Intake Amount 240 120 # Voids Void 1 1 - Exam Breasts: Present: normal Cardiovascular: Present: Regular rate Lungs: Present: Clear to auscultation, Normal air movement Abdomen: Present: normal appearance, soft Vulva: both: normal Uterus: Present: normal, firm, fundal height at umbilicus Extremities: Present: normal Deep Tendon Reflex Grade: Normal +2 Incision: Present: normal, dry, intact
--- NOTE | 2017-02-26 08:31 | Discharge Summary ---
<CHANDRA LORENZO - Last Filed: 02/26/17 08:30> Providers - Providers Date of Admission: 02/24/17 09:35 Date of discharge: 02/26/17 (desires d/c home) Attending physician: BIRD SARMIENTO Primary care physician: MARY GARCÍA Hospitalization Reason for admission: section Delivery: Procedure: repeat low transverse Incision: normal, dry, intact Other procedures: none complications: none Discharge diagnosis: IUP at term delivered [place] baby: female Hospital course: uncomplicated c/s Condition at discharge: Good Disposition: DC-01 TO HOME OR SELFCARE - Discharge Diagnoses (1) delivery delivered Status: Acute Plan - Discharge Medications Prescriptions: HYDROcodone/APAP 5-325 [[place] 5-325 mg TAB] 1 - 2 each PO Q4HR PRN #30 tablet PRN Reason: Pain, Moderate (4-6) Ibuprofen [Motrin 800 MG tab] 800 mg PO Q8HR PRN #30 tablet PRN Reason: Pain - Provider Discharge Summary Activity: routine, no sex for 6 weeks, no heavy lifting 4 weeks, no strenuous exercise Diet: routine Instructions: routine Additional instructions: [] Smoking cessation referral if applicable(refer to patient education folder for contact #) [] Refer to [facility] Booklet Call your doctor immediately for: * Fever > 100.5 * Heavy vaginal bleeding ( >1 pad per hour) * Severe persistent headache * Shortness of breath * Reddened, hot, painful area to leg or breast * Drainage or odor from incision. * Keep incision clean and dry at all times and follow doctor's instructions regarding bathing/showering - Follow up plan Follow up: MARY GARCÍA MD [Primary Care Provider] - 7 Days (Congratulations! Please keep your scheduled appointment next week. Call [phone] for any questions or concerns. ) <MARY GARCÍA - Last Filed: 02/26/17 08:46> Providers - Providers Date of Admission: 02/24/17 09:35 Attending physician: BIRD SARMIENTO Primary care physician: MARY GARCÍA Plan - Provider Discharge Summary Additional instructions: [] Smoking cessation referral if applicable(refer to patient education folder for contact #) [] Refer to [facility] Booklet Call your doctor immediately for: * Fever > 100.5 * Heavy vaginal bleeding ( >1 pad per hour) * Severe persistent headache * Shortness of breath * Reddened, hot, painful area to leg or breast * Drainage or odor from incision. * Keep incision clean and dry at all times and follow doctor's instructions regarding bathing/showering
[2017-02-26 12:54] VITALS: BP 90/56
== END 2017-02-26 12:30 | disposition home or self-care (01) | DRG 766 ==
LOC: APU 09:35 → OB 14:44
PROVIDERS: ADMIT Obstetrics & Gynecology; ATTEND Obstetrics & Gynecology
PROC: 10D00Z1 Extraction of Products of Conception, Low, Open Approach (ICD-10-PCS; principal; 2017-02-24)
PROC: 3E0234Z Introduction of Serum, Toxoid and Vaccine into Muscle, Percutaneous Approach (ICD-10-PCS; principal; 2017-02-24)
DX: O34.211 Maternal care for low transverse scar from previous cesarean delivery (principal); Z3A.39 39 weeks gestation of pregnancy; Z37.0 Single live birth; Z23 Encounter for immunization
CPT/HCPCS: 36415; 85007; 85014; 85018; 85025; 86850; 86900; 86901; C1765; C9250; J0690; J1170; J1885; J2270; J2370; J2405; J2590; J2765; J7030; J7120; J7121

== ENCOUNTER 2018-09-09 07:30 | Inpatient (IN) | payer MEDICAID, OTHER ==
[2018-09-19] MEDS ORDERED: LACTATED RINGERS 1,000 ML ONE (03:19)
[2018-09-19] MEDS ORDERED: BICITRA PO ONE (03:50)
[2018-09-19] MEDS ORDERED: REGLAN IV ONE (03:50)
[2018-09-19] MEDS ORDERED: PEPCID IV ONE (03:50)
[2018-09-19 03:56] LABS: Hematocrit 26.4 % (30.3-42.9); Hemoglobin 8.3 gm/dl (10.1-14.3); Mean Corpuscular HGB Conc 31 % (30-34); Mean Corpuscular Volume 68 fl (79-97); Red Blood Count 3.86 M/mm3 (3.65-5.03); Red Cell Distribution Width 20.1 % (13.2-15.2)
[2018-09-19 03:57] LABS: Platelet Count 433 K/mm3 (140-440)
[2018-09-19] MEDS ORDERED: LACTATED RINGERS 1,000 ML IV SCH (04:00)
[2018-09-19] MEDS ORDERED: ANCEF/STERILE WATER 2 GM/20 ML 2 GM/20 ML SYRINGE IV NR (04:00)
[2018-09-19] MEDS ORDERED: PITOCin/NS 20 UNIT/1000ML DRIP 20 UNITS/1,000 ML BAG IV SCH ×2 (04:00→09:30)
--- NOTE | 2018-09-19 04:07 | Anesthesia Consultation ---
Anesthesia Consult and Med Hx Date of service: 09/19/18 - Airway Anesthetic Teeth Evaluation: Good ROM Head & Neck: Adequate Mental/Hyoid Distance: Adequate Mallampati Class: Class I Intubation Access Assessment: Good - Pulmonary Exam CTA: Yes - Cardiac Exam Cardiac Exam: RRR - Pre-Operative Health Status ASA Pre-Surgery Classification: ASA2 Proposed Anesthetic Plan: Spinal - Pulmonary Hx Asthma: No COPD: No Hx Pneumonia: No - Cardiovascular System Hx Hypertension: No - Central Nervous System Hx Seizures: No Hx Psychiatric Problems: No - Endocrine Hx Renal Disease: No Hx End Stage Renal Disease: No Hx Hypothyroidism: No Hx Hyperthyroidism: No - Hematic Hx Anemia: No Hx Sickle Cell Disease: No - Other Systems Hx Alcohol Use: No
--- NOTE | 2018-09-19 04:07 | Anesthesia Day of Surgery ---
Anesthesia Day of Surgery - Day of Surgery Patient Examined: Yes Patient H&P Reviewed: Yes Patient is NPO: Yes (8 hours)
[2018-09-19] MEDS ORDERED: ANCEF/STERILE WATER 2 GM/20 ML 2 GM/20 ML SYRINGE IV ONE (04:21)
--- NOTE | 2018-09-19 04:39 | History and Physical Report ---
History of Present Illness Date of examination: 09/19/18 Date of admission: 09/19/18 03:12 Chief complaint: contractions History of present illness: The pt is a 28 year old DELFIN 09/24/18 at 39w2d presents with regular painful contractions since midnight. She has a h/o three prior cesareans and she was scheduled for section at 1130 am. She denies vaginal bleeding or leakage of fluid. She has had care at [facility] since 29 wks complicated by late entry to care at 29 wks, trichomonas treated on 07/26/18, anemia non-compliant with iron supplementation, and GBS positive status. Past History Past Medical History: no pertinent history Past Surgical History: section (2006, 2009, 2016) [employer] History: chlamydia (remote), gonorrhea (remote history ), trichomonas (treated 07/26/18 ) Family/Genetic History: none Social history: no significant social history - Obstetrical History Expected Date of Delivery: 09/24/18 Actual Gestation: 39 Week(s) 2 Day(s) : 4 Para: 3 Hx # Term Pregnancies: 3 Number of Pregnancies: 0 Spontaneous Abortions: 0 Induced : 0 Number of Living Children: 3 Medications and Allergies Allergies Allergy/AdvReac Type Severity Reaction Status Date / Time No Known Allergies Allergy Verified 09/19/18 03:35 Home Medications Medication Instructions Recorded Confirmed Last Taken Type HYDROcodone/APAP 5-325 [[place] 1 - 2 each PO Q4HR PRN #30 tablet 02/26/17 Unknown Rx 5-325 mg TAB] Ibuprofen [Motrin 800 MG tab] 800 mg PO Q8HR PRN #30 tablet 02/26/17 Unknown Rx Active Meds: Active Medications Oxytocin/Sodium Chloride (Pitocin/Ns 20 Unit/1000ml Drip) 20 units in 1,000 mls @ 0 mls/hr IV TITR ASYA Lactated Ringer's (Lactated Ringers) 1,000 mls @ 2,250 mls/hr IV PREOP ASYA Stop: 09/20/18 04:27 Last Admin: 09/19/18 04:20 Dose: 2,250 mls/hr Documented by: Cefazolin Sodium (Ancef/Sterile Water 2 Gm/20 Ml) 2 gm in 20 mls @ 80 mls/hr IV PREOP NR; Protocol Stop: 09/19/18 23:45 Review of Systems All systems: negative - Physical Exam Breasts: Positive: deferred Cardiovascular: Regular rate Lungs: Positive: Clear to auscultation Abdomen: Positive: soft (gravid ) Uterus: Positive: enlarged (gravid ) Extremities: Positive: normal - Obstetrical FHR: category 2 Uterine Contraction Monitor Mode: External Uterine Contraction Pattern: Regular Uterine Tone Measurement Phase: Resting Uterine Contraction Intensity: Strong/Firm Results Result Diagrams: 09/19/18 03:30 Abnormal lab results 09/19/18 Range/Units 03:30 Hgb 8.3 L (10.1-14.3) gm/dl Hct 26.4 L (30.3-42.9) % MCV 68 L (79-97) fl MCH 21 L (28-32) pg RDW 20.1 H (13.2-15.2) % All other labs normal. Assessment and Plan A: IUP at 39w2d Latent Labor Previous x 3 Undesired Fertility- pt now desires tubal ligation, not salpingectomy Chronic Anemia GBS positive P: Proceed with repeat section with bilateral tubal ligation and other indicated procedures
[2018-09-19] MEDS ORDERED: ZOFRAN ONE (06:00)
[2018-09-19] MEDS ORDERED: NEO SYNEPHRINE/NS Syringe(OR USE) IV ONE (06:00)
--- NOTE | 2018-09-19 06:31 | Procedure Note ---
OB Delivery Note - Delivery Date of Delivery: 09/19/18 Surgeon: IZABEL WILSON Estimated blood loss: other (400 mL) - Section Preop diagnosis: repeat , desires sterilization, other (labor ) Postop diagnosis: same section procedure: section, repeat low transverse, bilateral tubal ligation Disposition: PACU Complications: none Narrative: Please see operative note. - Infant A at 1 minute: 8 at 5 minutes: 8 Gender: Male (3158g (6lb 15 oz) @ 0527 am)
--- NOTE | 2018-09-19 06:31 | Operative Report ---
Operative Report Operative Report: Date of procedure: September 19, 2018 Preoperative diagnosis: 1) IUP at 39w2d 2) Previous x 3 3) Latent Labor 4) Undesired fertility Postoperative diagnosis: Same Procedure: 1) Repeat low transverse section 2) Bilateral tubal ligation via Ardoch Method Surgeon: Elena Butts M.D. Anesthesia: Regional Findings: 1) Viable male , Apgars 8 and 8, weight 3158g, (6 lb 15 oz) in cephalic presentation 2) 5 cm uterine window visible upon entry into the peritoneal cavity 2) Normal-appearing uterus ovaries and tubes Estimated blood loss: 400 mL IV fluids: 2000 mL Urine output: 100 mL, clear at the end of the procedure Drains: Bourgeois to gravity Specimens: Placenta, tubal segments to pathology Complications: None. Counts correct x 3 Disposition: Stable to PACU Indication for procedure: Pt is a 28 year old at 39w2d with a history of three prior cesareans presents in latent labor. The decision was made to proceed to delivery. Operation in detail: After the risks, benefits, alternatives and complications were explained to the patient she gave informed consent for the procedure. She was subsequently taken to the operating room where regional anesthesia was noted to be adequate. She was subsequently placed in the dorsal supine position with leftward tilt and prepped and draped in a normal sterile fashion. heart tones were noted prior to incision. A timeout was performed. A Pfannenstiel skin incision was made with the knife and carried down to the layer of the fascia with the Bovie. The fascia was incised in the midline and the fascial incision was extended bilaterally with the Bovie. Attention was then turned to the superior aspect of the incision which was grasped with two Kochers, tented up, and dissected off the rectus muscles. Attention was then turned to the inferior aspect of the incision which was grasped with two Kochers, tented up and dissected off the rectus muscles. The rectus muscles were then in the midline and partially transected for adequate visualization. The peritoneum was then entered sharply between two Allis clamps. The peritoneal incision was extended with good visualization of the bladder. Upon entry into the peritoneal cavity, a 5 cm uterine window was visible, as well as the amnitotic sac containing meconium stained amniotic fluid. The peritoneal incision was then stretched. The bladder blade was placed. A transverse incision was made across the thin tissue in front of the amniotic sac and stretched. The head was delivered without difficulty followed by shoulders and body. was bulb suctioned at delivery. The cord was clamped and cut and the was handed to NICU staff in attendance. Cord blood was collected. The placenta was then delivered manually. The uterus was then exteriorized and cleared of all clots and debris. The hysterotomy was then reapproximated with 0 Vicryl in a running locked fashion. There was not enough tissue to create a second imbricated layer. Attention was then turned to the tubal ligation. The right tube was identified and followed to to the fimbriae. The tube was then grasped with a Ton and ligated via the Ardoch method using 0 plain gut. Bleeding in the surrounding mesosalpinx was controlled by clamping with a Jazmyn, and suture ligating the vessel with 3-0 Vicryl. Hemostasis was noted. Attention was then turned to the left tube which in a similar fashion was followed down to the fimbriae, grasped with a [place], and ligated via the Ardoch method using 0 plain gut. Hemostasis was noted. Surgicel was placed over the remaining tubal segments. The hysterotomy was inspected and hemostasis was noted. The uterus was then returned to the peritoneal cavity. All instruments were removed from the abdominal cavity. The gutters were irrigated and cleared of all clots and debris. The hysterotomy was again inspected and noted to be hemostatic. Surgicel was then placed over the hysterotomy. The peritoneum was reapproximated with 2-0 Vicryl in a running fashion incorporating the rectus muscles. The rectus muscles were then covered with Surgicel. The fascia was reapproximated with 0 Vicryl in a running fashion. The skin was reapproximated with 4-0 Vicryl in a subcutiular fashion. The incision was then covered with steri strips and a pressure dressing. The procedure was then ended. The patient tolerated the procedure well and was taken to the PACU in stable condition. All instrument, lap, and needle counts were correct 3.
--- NOTE | 2018-09-19 07:00 | Post Anesthesia Evaluation ---
- Post Anesthesia Evaluation Patient Participated: Yes Airway Patent: Yes Stable Respiratory Function: Yes Nausea/Vomiting: No Temp > 96.8F: Yes Pain Manageable: Yes Adequeate Hydration: Yes Anesthesia Complications: No Block Receding Appropriately: Yes
[2018-09-19 09:26] LABS: Hematocrit 24.7 % (30.3-42.9); Hemoglobin 7.5 gm/dl (10.1-14.3); Mean Corpuscular HGB Conc 30 % (30-34); Platelet Count 377 K/mm3 (140-440); Red Blood Count 3.58 M/mm3 (3.65-5.03)
[2018-09-19] MEDS ORDERED: MYLICON PO PRN (09:30)
[2018-09-19] MEDS ORDERED: MORPHINE IV PRN ×2 (09:30)
[2018-09-19] MEDS ORDERED: D5LR 1,000 ML IV SCH (09:30)
[2018-09-19] MEDS ORDERED: LANSINOH TP PRN (09:30)
[2018-09-19] MEDS ORDERED: NARCAN 0.4 MG/1 ML IV PRN (09:30)
[2018-09-19] MEDS ORDERED: TUCKS PAD TP PRN (09:30)
[2018-09-19] MEDS ORDERED: SODIUM CHLORIDE FLUSH SYRINGE 10 ML IV NR (09:30)
[2018-09-19] MEDS ORDERED: ZOFRAN IV PRN (09:30)
[2018-09-19 09:36] LABS: Mean Corpuscular Volume 69 fl (79-97); Red Cell Distribution Width 20.4 % (13.2-15.2)
[2018-09-19 09:51] LABS: Uric Acid 3.7 mg/dL (3.5-7.6)
[2018-09-19 09:57] LABS: Alanine Aminotransferase 5 units/L (7-56)
[2018-09-19] MEDS ORDERED: TORADOL IV PRN (10:30)
[2018-09-19] MEDS: PERCOCET 5/325 PO PRN ×3 (11:39→21:14)
[2018-09-19] MEDS: ANCEF/NS 1 GM/50 ML 1 GM/50 ML BAG IV SCH ×2 (12:30→21:04)
[2018-09-19] MEDS: IBUPROFEN PO PRN ×2 (17:03→23:33)
[2018-09-19 18:08] LABS: Hematocrit 24.9 % (30.3-42.9); Hemoglobin 7.7 gm/dl (10.1-14.3)
[2018-09-19] MEDS ORDERED: MILK OF MAGNESIA PO PRN (22:00)
[2018-09-20] MEDS: PERCOCET 5/325 PO PRN ×3 (04:35→20:10)
[2018-09-20 05:24] LABS: Bacteria,Urine 1+ /HPF (Negative); Bilirubin,Urine NEG (Negative); Blood,Urine LG (Negative); Urobilinogen,Urine < 2.0 mg/dL (<2.0)
[2018-09-20 05:28] LABS: RBC,Urine > 182.0 /HPF (0.0-6.0)
[2018-09-20 05:30] LABS: Color,Urine Amber (Yellow)
[2018-09-20] MEDS ORDERED: BOOSTRIX IM ONE (06:00)
--- NOTE | 2018-09-20 08:02 | Progress Note ---
Assessment and Plan A/P POD 1 s/p repeat csec UTI dx with urine started macrobid routine postop care Subjective - Subjective Date of service: 09/20/18 Principal diagnosis: s/p repeat csec Patient reports: appetite normal, voiding normally, pain well controlled, flatus, ambulating normally [place]: doing well Objective - Vital Signs Latest vital signs: Vital Signs Temp Pulse Resp BP BP Pulse Ox 09/20/18 04:35 18 09/20/18 00:23 98.6 F 60 18 96/54 96 09/19/18 23:33 18 09/19/18 21:14 20 09/19/18 20:44 98.6 F 78 18 94/62 97 09/19/18 18:03 18 09/19/18 18:02 18 09/19/18 17:03 20 09/19/18 17:02 20 09/19/18 16:25 97.7 F 53 L 18 93/61 09/19/18 12:10 98.3 F 57 L 18 107/59 09/19/18 11:39 20 09/19/18 10:31 20 09/19/18 08:10 94 H 14 105/67 09/19/18 08:00 106 H 16 121/77 Intake and Output 09/19/18 09/19/18 09/20/18 15:59 23:59 07:59 Intake Total 290 240 Output Total 200 1200 400 Balance 90 -960 -400 Intake: IV 50 ANCEF/NS 1 GM/50 ML 1 gm 50 In 50 ml @ 100 mls/hr IV Q8H [facility] Rx#:[id number] Oral 240 240 Output: Urine 200 1200 400 Indwelling Catheter 200 900 Void 300 400 Other: Total, Intake Amount 120 240 Total, Output Amount 200 300 400 # Voids Void 1 1 - Exam Breasts: Present: normal Cardiovascular: Present: Regular rate, Normal S1 Lungs: Present: Clear to auscultation, Normal air movement Abdomen: Present: normal appearance, soft, normal bowel sounds. Absent: distention, tenderness, guarding Vulva: both: normal Uterus: Present: normal, firm, fundal height below umbilicus. Absent: bogginess, tenderness Extremities: Present: normal Deep Tendon Reflex Grade: Normal +2 Incision: Present: normal, dry, intact - Labs Labs: Abnormal lab results 07/04/0909/19/18 09/19/18 Range/Units 09:11 09:11 17:41 WBC 11.4 H (4.5-11.0) K/mm3 RBC 3.58 L (3.65-5.03) M/mm3 Hgb 7.5 L 7.7 L (10.1-14.3) gm/dl Hct 24.7 L 24.9 L (30.3-42.9) % MCV 69 L (79-97) fl MCH 21 L (28-32) pg RDW 20.4 H (13.2-15.2) % ALT 5 L (7-56) units/L Lactate Dehydrogenase 181 H (91-180) units/L Urine WBC (Auto) (0.0-6.0) /HPF 09/20/18 Range/Units 05:00 WBC (4.5-11.0) K/mm3 RBC (3.65-5.03) M/mm3 Hgb (10.1-14.3) gm/dl Hct (30.3-42.9) % MCV (79-97) fl MCH (28-32) pg RDW (13.2-15.2) % ALT (7-56) units/L Lactate Dehydrogenase (91-180) units/L Urine WBC (Auto) 23.0 H (0.0-6.0) /HPF
[2018-09-20] MEDS ORDERED: M-M-R II VACCINE SUB-Q ONE (10:00)
[2018-09-20] MEDS: MACROBID PO SCH ×2 (10:55→22:00)
[2018-09-20] MEDS: IBUPROFEN PO PRN ×2 (10:55→20:10)
[2018-09-20] MEDS: FEOSOL PO SCH (10:55)
[2018-09-21] MEDS: IBUPROFEN PO PRN ×4 (00:42→22:30)
[2018-09-21] MEDS: PERCOCET 5/325 PO PRN ×3 (02:20→17:02)
[2018-09-21] MEDS: FEOSOL PO SCH (10:41)
[2018-09-21] MEDS: MACROBID PO SCH ×2 (10:41→22:30)
--- NOTE | 2018-09-21 12:54 | Progress Note ---
Assessment and Plan A: 1. POD2 s/p repeat LTCS at term 2. Physiologic hypotension P: 1. Continue current care 2. Anticipate discharge to home tomorrow Subjective - Subjective Date of service: 09/21/18 Principal diagnosis: s/p repeat csec Interval history: Pt is POD2 s/p repeat LTCS at term. Patient reports: appetite normal, voiding normally, pain well controlled, flatus, ambulating normally : doing well, other (Receiving phototherapy), bottle feeding Objective - Vital Signs Latest vital signs: Vital Signs Temp Pulse Resp BP BP Pulse Ox 09/21/18 11:47 97.7 F 78 16 96/57 99 09/21/18 08:19 18 09/21/18 07:50 97.7 F 72 16 85/48 97 09/21/18 07:49 97.7 F 72 16 84/45 97 09/21/18 06:45 18 09/21/18 03:20 18 09/21/18 02:20 18 09/21/18 01:42 18 09/21/18 00:42 18 09/21/18 00:37 97.4 F L 83 18 90/48 98 09/20/18 21:10 18 09/20/18 20:10 18 09/20/18 16:39 98.7 F 83 18 104/61 Intake and Output 09/20/18 09/21/18 09/21/18 23:59 07:59 15:59 Intake Total 480 240 360 Balance 480 240 360 Intake: Oral 480 240 120 Intake, Free Water 240 Other: Total, Intake Amount 480 240 120 # Voids Void 1 1 - Exam Breasts: Present: deferred Cardiovascular: Present: Regular rate, Normal S1, Normal S2, No murmurs Lungs: Present: Clear to auscultation, Normal air movement Abdomen: Present: normal appearance, soft Uterus: Present: normal, firm, fundal height at umbilicus Extremities: Present: normal Incision: Present: normal, intact
[2018-09-22] MEDS: PERCOCET 5/325 PO PRN ×2 (01:41→14:05)
[2018-09-22 07:46] VITALS: BP 121/87
--- NOTE | 2018-09-22 10:17 | Progress Note ---
Assessment and Plan A: 1. POD3 s/p releat LTCS and tubal 2. Bottle feeding 3. Severe chronic anemia P: Discharge to home today Continue iron supplementation Return to clinic in 2 weeks for incision check Subjective - Subjective Principal diagnosis: s/p repeat csec Interval history: Pt is POD3 s/p repeat LTCS at term. Patient reports: appetite normal, voiding normally, pain well controlled, flatus, ambulating normally [place]: doing well, bottle feeding Objective - Vital Signs Latest vital signs: Vital Signs Temp Pulse Resp BP BP Pulse Ox 09/22/18 07:15 98.3 F 64 20 121/87 98 09/22/18 00:56 103/72 09/22/18 00:50 98.0 F 84 18 103/72 99 09/21/18 17:30 98.7 F 89 16 98/61 100 09/21/18 17:02 18 09/21/18 11:47 97.7 F 78 16 96/57 99 Intake and Output 09/21/18 09/22/18 09/22/18 23:59 07:59 15:59 Intake Total 840 240 Balance 840 240 Intake: Oral 480 240 Intake, Free Water 360 Other: Total, Intake Amount 480 240 # Voids Void 2 1 - Exam Cardiovascular: Present: Regular rate, Normal S1, Normal S2 Lungs: Present: Clear to auscultation, Normal air movement Abdomen: Present: normal appearance, soft, normal bowel sounds Uterus: Present: normal, firm, fundal height below umbilicus Extremities: Present: normal Incision: Present: normal, dry, intact
--- NOTE | 2018-09-22 10:19 | Discharge Summary ---
Providers - Providers Date of Admission: 09/19/18 03:12 Date of discharge: 09/22/18 Attending physician: IZABEL WILSON Primary care physician: IZABEL WILSON Hospitalization Reason for admission: section Delivery: Procedure: section, bilateral tubal ligation, repeat low transverse complications: UTI Discharge diagnosis: IUP at term delivered Condition at discharge: Good Disposition: - TO HOME OR SELFCARE Plan - Discharge Medications Prescriptions: Docusate Sodium [Colace] 100 mg PO BID PRN #60 capsule PRN Reason: Constipation Ferrous Sulfate [Feosol 325 MG tab] 325 mg PO TID #90 tablet Nitrofurantoin [place]/M-Cryst [Macrobid CAP] 100 mg PO Q12HR #14 capsule Ibuprofen [Motrin] 800 mg PO Q8HR PRN #30 tablet PRN Reason: Pain, Moderate (4-6) oxyCODONE /ACETAMINOPHEN [Percocet 5/325] 1 tab PO Q6HR PRN #40 tablet PRN Reason: Pain - Provider Discharge Summary Activity: routine, no sex for 6 weeks, no heavy lifting 4 weeks, no strenuous exercise Diet: routine Instructions: routine Additional instructions: [] Smoking cessation referral if applicable(refer to patient education folder for contact #) [] Refer to [facility] Booklet Call your doctor immediately for: * Fever > 100.5 * Heavy vaginal bleeding ( >1 pad per hour) * Severe persistent headache * Shortness of breath * Reddened, hot, painful area to leg or breast * Drainage or odor from incision. * Keep incision clean and dry at all times and follow doctor's instructions regarding bathing/showering [facility] - Follow up plan Follow up: IZABEL WILSON MD [Primary Care Provider] - 7 Days
[2018-09-22] MEDS: MACROBID PO SCH (14:05)
[2018-09-22] MEDS: FEOSOL PO SCH (14:05)
== END 2018-09-22 15:00 | disposition home or self-care (01) | DRG 765 ==
LOC: APU 09-19 03:12 → OB 09-19 09:02
PROVIDERS: ADMIT Obstetrics & Gynecology; ATTEND Obstetrics & Gynecology
PROC: 10D00Z1 Extraction of Products of Conception, Low, Open Approach (ICD-10-PCS; principal; 2018-09-19)
PROC: 0UB70ZZ Excision of Bilateral Fallopian Tubes, Open Approach (ICD-10-PCS; 2018-09-19)
PROC: 3E0234Z Introduction of Serum, Toxoid and Vaccine into Muscle, Percutaneous Approach (ICD-10-PCS; 2018-09-20)
DX: O34.211 Maternal care for low transverse scar from previous cesarean delivery (principal); O86.20 Urinary tract infection following delivery, unspecified; O99.824 Streptococcus B carrier state complicating childbirth; O99.02 Anemia complicating childbirth; D50.8 Other iron deficiency anemias; O63.0 Prolonged first stage (of labor); Z3A.39 39 weeks gestation of pregnancy; Z37.0 Single live birth; Z23 Encounter for immunization
CPT/HCPCS: 36415; 81001; 82565; 83615; 84450; 84460; 84550; 85014; 85018; 85027; 86592; 86850; 86900; 86901; 87086; 88302; 88305; 88307; G0378; J0690; J1885; J2370; J2405; J2590; J2765; J7120; J7121